=== PATIENT | male | born 1990 | race Caucasian/White ===

== ENCOUNTER 2017-08-08 10:20 | Emergency (ER) | payer MEDICAID ==
[~2017-08-08] VITALS: Ht 185.4 cm; Wt 68.0 kg
[2017-08-08 10:24] VITALS: Ht 185.4 cm; Wt 68.0 kg
[2017-08-08 12:40] VITALS: BP 137/78
== END 2017-08-08 12:40 | disposition home or self-care (01) ==
LOC: ED 10:20
DX: S02.2XXA Fracture of nasal bones, initial encounter for closed fracture (principal); S01.21XA Laceration without foreign body of nose, initial encounter; Y04.8XXA Assault by other bodily force, initial encounter; Y93.89 Activity, other specified; Y99.8 Other external cause status; Y92.89 Other specified places as the place of occurrence of the external cause
CPT/HCPCS: 90715